=== PATIENT | male | born 1940 | race Caucasian/White ===

== ENCOUNTER 2019-08-26 11:44 | Outpatient (CLI) | payer OTHER, MEDICARE, SELFPAY | END 2019-08-26 11:45 | disposition home or self-care (01) | LOC: LAB 11:56 | PROVIDERS: Family Provider Family Medicine; PCP Family Medicine; Visit Provider Internal Medicine Nephrology | DX: N18.3 Chronic kidney disease, stage 3 (moderate) (principal) | CPT/HCPCS: 36415; 87799 ==

== ENCOUNTER → 2019-09-15 13:04 | Outpatient (BNVA) | payer OTHER, MEDICARE, SELFPAY | PROVIDERS: Family Provider Family Medicine; PCP Family Medicine; Visit Provider Podiatrist Foot & Ankle Surgery | DX: L97.512 Non-pressure chronic ulcer of other part of right foot with fat layer exposed (principal); E11.622 Type 2 diabetes mellitus with other skin ulcer; M19.071 Primary osteoarthritis, right ankle and foot | CPT/HCPCS: 73630; 87075 ==